=== PATIENT | male | born 1945 | race African-American/Black ===

== ENCOUNTER 2016-09-09 11:55 | Emergency (ER) | payer MEDICARE, BC ==
[~2016-09-09 11:55] MED LIST: ASAB PO; FISH-EPA1000 MG PO; FOLTX PO; GARLIC PO; MICARDIS HCT PO; PLAVIX PO; TOPXL50 PO
== END 2016-09-09 12:30 | disposition home or self-care (01) ==
LOC: ER 11:55
DX: M25.561 Pain in right knee (principal); I10 Essential (primary) hypertension; Z88.6 Allergy status to analgesic agent; Z88.8 Allergy status to other drugs, medicaments and biological substances; Z79.82 Long term (current) use of aspirin; Z79.899 Other long term (current) drug therapy
CPT/HCPCS: 99283